=== PATIENT | female | born 2005 | race Two or more races ===

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

== ENCOUNTER → 2023-10-03 | Day surgery (SDC) | payer MEDICAID ==
[2023-10-02 15:38] LABS: Urine Bacteria None Seen /hpf (None Seen)
[2023-10-02 15:42] LABS: Hematocrit 36.4 % (36.0-46.0); Hemoglobin 11.9 g/dL (12.2-16.2); Mean Corpuscular Hemoglobin 30.5 pg (28.0-32.0); Mean Corpuscular Hgb Conc. 32.8 g/dL (32.0-36.0); Platelet Count (auto) 270 10^3/uL (140-450); Red Blood Cells 3.91 10^6/uL (4.0-5.20); Red Cell Distribution Width 14.8 % (11.8-14.3); White Blood Cell 9.4 10^3/uL (4.4-10.8)
[2023-10-02 15:43] LABS: Urine Blood 2+ /uL (Negative); Urine Clarity Clear (Clear); Urine Color Light-Yellow (Yellow); Urine Protein, UAD Negative (Negative); Urine Specific Gravity 1.015 (1.001-1.035); Urine Urobilinogen Normal (Negative); Urine WBC 1 /hpf (0 - 5); Urine pH 5.5 (5.0-9.0)
[2023-10-02 15:52] LABS: Band Neutrophils % (manual) 0; Basophils % (manual) 0 (0.0-2.0); Blast Cells 0; Metamyelocytes % 0; Myelocytes % 0; Promyelocytes % 0; Reactive Lymphocytes 0
[2023-10-02 16:04] LABS: INR 1.04 (0.9-1.15); Partial Thromboplastin Time 27.1 SEC (24.5-34.5)
[2023-10-02 16:20] LABS: Albumin 3.8 g/dL (3.2-4.8); Alkaline Phosphatase 61 U/L (46-116); Anion Gap 2 (5-15); Aspartate Aminotransferase 10 U/L (13-40); BUN/Creatinine Ratio 13.2 (10.0-20.0); Blood Urea Nitrogen 7 mg/dL (9-23); Carbon Dioxide 27 mmol/L (20-30); Chloride 110 mmol/L (98-107); Glucose 82 mg/dL (74-106); Potassium 4.1 mmol/L (3.5-5.1); Sodium 139 mmol/L (136-145)
[2023-10-02 16:21] LABS: Bilirubin, Total 0.6 mg/dL (0.2-1.0); Total Protein 6.8 g/dL (5.7-8.2)
[2023-10-02 16:27] LABS: Alanine Aminotransferase < 9 U/L (7-40)
[2023-10-02 16:37] LABS: Eosinophils % (manual) 30 (0-7); Lymphocytes % (manual) 34 (10.0-50.0); Monocytes % (manual) 4 (0-12)
[2023-10-02 16:38] LABS: Platelet Estimate Adequate; RBC Morphology Normal
[~2023-10-03] VITALS: Ht 152.4 cm; Wt 50.3 kg
[~2023-10-03] MED LIST: CHOL20004 PO; ETAN50IN10 SC; FOLI-119 PO; GLYCOPYRROLATE 0.2 MG/ML 1ML VIAL ONE; HYDROCORTISONE SOD SUCC 100 MG/2ML INJ VIAL ONE; HYDROmorphone HCL 2 MG/ML VL/or syr IV PRN; HYOS0.1250 PO; KETAMINE 50mg/ML 1ml syringe ONE; METH2.5T PO; MIDAZOLAM HCL 2MG/2ML 2ml VIAL (1mg/ml) ONE; OMEP20TA PO; ONDANSETRON HCL 4 MG/2 ML VIAL IV ONE; ONDANSETRON HCL 4 MG/2 ML VIAL ONE; PROPOFOL 10 MG/ML 20 ML IV ONE; SIMETHICONE 40 MG/0.6 ML ORAL DROP ONE
[2023-10-03 08:46] VITALS: TEMP 97.1; O2SAT 100
[2023-10-03 09:22] VITALS: BP 112/72; PULSE 82; RESP 17; O2SAT 100
== END | disposition home or self-care (01) ==
LOC: GI 07:30
PROVIDERS: ATTEND Internal Medicine Gastroenterology
DX: R10.30 Lower abdominal pain, unspecified (principal); K21.9 Gastro-esophageal reflux disease without esophagitis; F17.210 Nicotine dependence, cigarettes, uncomplicated; F32.A Depression, unspecified; M19.90 Unspecified osteoarthritis, unspecified site; Z98.891 History of uterine scar from previous surgery
CPT/HCPCS: 36415; 45378; 80053; 81001; 84702; 85007; 85027; 85610; 85730; J1720; J2250; J2405; J2704; J7030